=== PATIENT | female | born 1975 | race Caucasian/White ===

== ENCOUNTER → 2016-08-18 | Outpatient (CLI) | payer OTHER ==
--- NOTE | 2016-08-18 13:48 | KCIC ---
PROCEDURE Bilateral digital diagnostic mammogram; left breast sonogram. HISTORY 41-year-old female presents for follow-up evaluation of nodularity within the left breast demonstrated on a mammogram and sonogram dated 08/06/2015 and 08/15/2015. The patient did not return for recommended six-month follow-up. Therefore, the patient is due for bilateral mammography. TECHNIQUE Full field digital craniocaudal and mediolateral oblique views of both breasts are obtained. Computer-aided detection is applied. Sonographic imaging of the left breast targeted to the 12:00 to 6:00 position was also performed. COMPARISON 08/15/2015, 08/06/2015, 06/16/2014 FINDINGS Breast parenchymal composition: Level C - Heterogeneously dense. There is a stable small circumscribed nodular density within the anterior lateral left breast. There are benign calcifications bilaterally. There is no architectural distortion. Sonographic imaging of the left breast demonstrates a round hypoechoic lesion with internal echoes at the 4 o'clock position 6 cm from the nipple measuring 4 mm. No additional lesion is seen. Specifically, the previously demonstrated suspected cysts and fibrocystic changes are no longer seen. IMPRESSION 1. 4 mm benign appearing lesion within the 4 o'clock position of the left breast, likely a complex cyst or benign fibrocystic lesion. 2. No new suspicious mammographic finding. 3. BI-RADS Category 3: Probably benign finding. Short-term followup with a left breast sonogram in 6 months is recommended to confirm stability. Mammography is not 100% sensitive in detecting breast cancer. Therefore, a self breast exam and a clinical breast exam are very important. A negative mammogram does not negate a clinically suspicious finding and should not result in a delay in biopsying a clinically suspicious abnormality. This patient's information has been entered into a reminder system for the patient to be notified with the results of this examination and a target date for her next examination. Electronically signed by: Madison Neely (Aug 18, 2016 13:46:43)
== END | disposition home or self-care (01) ==
LOC: KCIC MAMMO 12:43
PROVIDERS: ATTEND Obstetrics & Gynecology
DX: R92.8 Other abnormal and inconclusive findings on diagnostic imaging of breast (principal); N63 Unspecified lump in breast
CPT/HCPCS: 76641; G0204; 77066

== ENCOUNTER → 2017-02-09 | Outpatient (CLI) | payer OTHER ==
--- NOTE | 2017-02-09 14:34 | KCIC ---
Left breast ultrasound: Reason for examination: 6 month follow-up of the left breast nodule. Comparison is made to previous studies dated 08/18/2016 and 08/15/2015. Ultrasound examination was performed in the area of mammographic concern. In the 4:00 position no discrete cystic or solid nodule is seen. IMPRESSION: Interval resolution of the small fibrocystic lesion at the 4:00 position. Recommend routine mammographic follow-up. BI-RADS Category 1: Negative. "Our facility is accredited by the [employer] Mammography Program." This patient's information has been entered into a reminder system for the patient to be notified with the results of her examination and a target date for the next mammogram. Electronically signed by: Roopa Byrd MD (02/09/2017 2:31 PM) [id number]
== END | disposition home or self-care (01) ==
LOC: KCIC US 14:01
PROVIDERS: ATTEND Obstetrics & Gynecology
DX: N63 Unspecified lump in breast (principal)
CPT/HCPCS: 76641

== ENCOUNTER → 2017-08-24 | Outpatient (CLI) | payer OTHER | END | disposition home or self-care (01) | LOC: KCIC MAMMO 16:40 | DX: Z12.31 Encounter for screening mammogram for malignant neoplasm of breast (principal) | CPT/HCPCS: 77063; 77067 ==

== ENCOUNTER → 2017-12-29 | Outpatient (CLI) | payer OTHER | END | disposition home or self-care (01) | LOC: ECHO 13:36 | DX: I47.1 Supraventricular tachycardia (principal); I27.20 Pulmonary hypertension, unspecified; I36.1 Nonrheumatic tricuspid (valve) insufficiency | CPT/HCPCS: 93306 ==

== ENCOUNTER → 2018-08-10 | Outpatient (CLI) | payer OTHER ==
[2018-08-10 15:46] LABS: BASO % 1 % (0-3); EOS # 0.1 x10^3/uL (0.0-0.7); EOS % 2 % (0-3); HEMATOCRIT 37.2 % (36.0-47.0); HEMOGLOBIN 12.1 g/dL (12.0-15.5); LYMPH # 1.8 x10^3/uL (1.0-4.8); LYMPH % 45 % (24-48); MEAN CORPUSCULAR HEMOGLOBIN 29 pg (25-35); MEAN CORPUSCULAR HGB CONC 33 g/dL (31-37); MEAN CORPUSCULAR VOLUME 90 fL (79-100); MONO # 0.3 x10^3/uL (0.0-1.1); MONO % 8 % (0-9); NEUT # 1.7 x10^3uL (1.8-7.7); NEUT % 43 % (31-73); PLATELET COUNT 242 x10^3/uL (140-400); RED BLOOD COUNT 4.13 x10^6/uL (3.50-5.40)
[2018-08-10 15:56] LABS: BARBITURATES NEG (NEG); BENZODIAZEPINES NEG (NEG); CANNABINOIDS NEG (NEG); COCAINE NEG (NEG); METHADONE NEG (NEG); OPIATES NEG (NEG); PHENCYCLIDINE NEG (NEG)
[2018-08-10 16:02] LABS: AMPHETAMINE/METHAMPHETAMINE NEG (NEG)
[2018-08-10 16:04] LABS: ALBUMIN 3.4 g/dL (3.4-5.0); ALBUMIN/GLOBULIN RATIO 0.9 (1.0-1.7); TOTAL BILIRUBIN 0.5 mg/dL (0.2-1.0); TOTAL PROTEIN 7.4 g/dL (6.4-8.2)
== END | disposition home or self-care (01) ==
LOC: LAB 15:07
PROVIDERS: ATTEND Psychiatry & Neurology Neurology
DX: R56.9 Unspecified convulsions (principal)
CPT/HCPCS: 36415; 80053; 80307; 82607; 84443; 85025

== ENCOUNTER → 2018-08-16 | Outpatient (CLI) | payer OTHER ==
--- NOTE | 2018-08-20 12:11 | EEG ---
DATE OF SERVICE: 08/16/2018 EEG NUMBER: [id number] OBJECTIVE: This is a 43-year-old female patient with history of seizure or seizure-like episodes. EEG was requested to evaluate seizure activity. METHODS: Twenty electrodes were applied according to the international 10-20 electrode placement system. EKG monitoring, hyperventilation, intermittent photic stimulation, monopolar and bipolar montages were routinely utilized. The record was obtained on a digital system with video monitoring. FINDINGS: 1. Background: The patient was recorded in the awake and drowsy states. No actual sleep state was recorded. The overall background amplitude was 5-15 microvolts. A posterior dominant rhythm of 8-10 Hz was observed. 2. Abnormalities: No specific epileptiform discharge or electrographic seizure was seen. No focal or diffuse slowing. 3. Activation: Hyperventilation was performed with good efforts and normal response. Intermittent photic stimulation was performed with photic driving. No specific epileptiform discharge or electrographic seizure induced by hyperventilation or intermittent photic stimulation. IMPRESSION: This EEG is a normal study for the awake and drowsy states. No sleep state was recorded. No focal, lateralizing, specific epileptiform discharge or electrographic seizure is seen. CHETNA KAYE MD DR: CARLEY/krystal JOB#: [id number] / [id number] NURY
== END | disposition home or self-care (01) ==
LOC: MERGE 08:12 → NM 08:12
PROVIDERS: ATTEND Internal Medicine Cardiovascular Disease
DX: R56.9 Unspecified convulsions (principal)
CPT/HCPCS: 95816

== ENCOUNTER → 2018-08-16 | Outpatient (CLI) | payer OTHER ==
--- NOTE | 2018-08-26 13:36 | RAD ---
MR#: [id number] Date of Study: 08/16/2018 Ordering Physician: ADELINE ESTRADA Referring Physician: MEAGHAN REYNOLDS Tech: APPROVED REPORT Test Type: Exercise Stress Nurse/Tech: Haylie Kincaid R.N. Cardiac History: See Electronic Medical Record Medications: See Electronic Medical Record Medical History: See Electronic Medical Record Resting ECG: SR POST EXERCISE Reason for Termination: Reached target heart rate Target HR: Yes Max HR: 152 bpm 102% of Maximum Predicted HR: 148 bpm Exercise duration: 10 min:sec, Stage Exercise capacity: 10METs Max Blood Pressure: 149/76mmHg Blood Pressure response to exercise: Normal blood pressure response during stress. INTERPRETATION Stress EKG Conclusion: Significant artifact noted on EKG tracings but within these limitations, no ev idence of ischemia. Other Information Quality:Poor Conclusion 1. Baseilne EKG without acute abnormalities. 2. Stress EKG with significant artifact, but within these limitations adequate exercise capacity at 1 0 Mets achieved. No significant ischemic findings. 3. Overall, low risk study Signed by : Sergey Reynoldsally Approved : 08/26/2018 13:36:19
== END | disposition home or self-care (01) ==
LOC: NM 09:21
PROVIDERS: ATTEND Internal Medicine Cardiovascular Disease
DX: I47.1 Supraventricular tachycardia (principal)
CPT/HCPCS: 93017

== ENCOUNTER → 2018-08-27 | Outpatient (CLI) | payer OTHER ==
--- NOTE | 2018-08-27 16:13 | KCIC ---
Bilateral digital screening mammograms with 3-D tomosynthesis: Reason for examination: Routine screening. Comparison is made to previous studies dated 08/24/2017 and 08/18/2016. Bilateral mammograms in CC and oblique projections were obtained with 2-D imaging and 3-D tomosynthesis imaging on a Siemens Inspiration unit and reviewed on the workstation. Interpretation was made with the benefit of CAD. The skin and nipples show no abnormalities. No abnormal axillary lymph nodes are seen. The breast parenchyma is heterogeneously dense. (Breast density: Category C.) There appears to be a new area of nodular architectural distortion seen centrally in the left breast on cc view. Further evaluation with coned compression views and ultrasound is recommended. There are no other dominant masses, suspicious calcifications or architectural distortion. Impression: Nodular architectural distortion seen centrally in the left breast on cc view. Recommend further evaluation with coned compression views in CC and lateral projections and left breast ultrasound. Your patient's mammogram demonstrates that she has dense breast tissue (breast density category C or D), which could hide abnormalities, and if she has other risk factors for breast cancer that have been identified, she might benefit from supplemental screening tests that may be suggested by you as her ordering physician. Dense breast tissue, in and of itself, is a relatively common condition. Therefore, this information is not provided to cause undue concern, but rather to raise your awareness and to promote discussion with your patient regarding the presence of other risk factors, in addition to dense breast tissue. Your patient's mammography results will be sent to her. BI-RAD Category 0: Incomplete. Needs additional imaging evaluation. "Our facility is accredited by the [employer] Mammography Program." This patient's information has been entered into a reminder system for the patient to be notified with the results of her examination and a target date for the next mammogram. Electronically signed by: Roopa Byrd MD (08/27/2018 4:10 PM) [id number]
== END | disposition home or self-care (01) ==
LOC: KCIC MAMMO 14:47
PROVIDERS: ATTEND Obstetrics & Gynecology
DX: Z12.31 Encounter for screening mammogram for malignant neoplasm of breast (principal)
CPT/HCPCS: 77063; 77067

== ENCOUNTER → 2019-03-22 | Outpatient (CLI) | payer OTHER ==
--- NOTE | 2019-03-22 16:08 | KCIC ---
Left breast diagnostic digital mammograms with 3-D tomosynthesis: Reason for examination: Follow-up nodular density. Comparison is made to previous studies dated 08/27/2018 and 08/24/2017. Left breast mammograms in CC and oblique projections were obtained with 2-D imaging and 3-D tomosynthesis imaging on a Siemens Inspiration unit and reviewed on the workstation. Interpretation was made with the benefit of CAD. The skin and nipple show no abnormalities. No abnormal axillary lymph nodes are seen. The breast parenchyma is heterogeneously dense. (Breast density: Category C.) There continues to be some subtle nodularity posterior medially in the left breast on cc view only. No definite correlate is seen on oblique view. This does not show significant interval change. There are no new dominant masses, suspicious calcifications or architectural distortion. Impression: Subtle nodularity persists medially in the left breast on cc view with no definite correlate on oblique view. Ultrasound to follow. Your patient's mammogram demonstrates that she has dense breast tissue (breast density category C or D), which could hide abnormalities, and if she has other risk factors for breast cancer that have been identified, she might benefit from supplemental screening tests that may be suggested by you as her ordering physician. Dense breast tissue, in and of itself, is a relatively common condition. Therefore, this information is not provided to cause undue concern, but rather to raise your awareness and to promote discussion with your patient regarding the presence of other risk factors, in addition to dense breast tissue. Your patient's mammography results will be sent to her. BI-RAD Category 0: Incomplete. Needs additional imaging evaluation. Left breast ultrasound: Ultrasound examination was performed in the area of mammographic concern" the axilla. At the 7:30 position 3 cm from the nipple, there continue to be 2 small hypoechoic benign-appearing fibrocystic lesions measuring up to 3.9 mm in size which is unchanged. There also continues to be a 3.9 mm lesion in the 8:00 position 3 cm from the nipple which is stable. In the 11:30 position 6 cm from the nipple, there is a 7.8 mm cyst. There is also a septated 1.3 cm lesion consistent with probable fibroadenoma. In the 6:00 position 7 cm from the nipple there is a small hypoechoic fibrocystic type lesion measuring 5.6 mm in size. There is a 1.6 cm lymph node in the left axilla with eccentric cortical thickening. This is probably reactive. IMPRESSION: Several small benign-appearing cystic and fibrocystic lesions which are subcentimeter in size. 1.3 cm hypoechoic septated lesion consistent with a fibroadenoma at the 11:30 position 6 cm from the nipple. 1.6 cm lymph node in left axilla with some concentric cortical thickening. This is probably reactive. Recommend follow-up ultrasound in 3 months. BI-RADS Category 3: Probably Benign. "Our facility is accredited by the [employer] Mammography Program." This patient's information has been entered into a reminder system for the patient to be notified with the results of her examination and a target date for the next mammogram. Electronically signed by: Roopa Byrd MD (03/22/2019 4:06 PM) [id number]
== END | disposition home or self-care (01) ==
LOC: KCIC MAMMO 08:40
PROVIDERS: ATTEND Obstetrics & Gynecology
DX: N60.02 Solitary cyst of left breast (principal); N64.89 Other specified disorders of breast
CPT/HCPCS: 76641; 77065; G0279; 77061

== ENCOUNTER → 2019-06-20 | Outpatient (CLI) | payer OTHER ==
--- NOTE | 2019-06-20 14:08 | KCIC ---
BREAST LEFT Clinical Indication: 3 month follow-up. Comparison: Left breast ultrasound 03/22/2019. TECHNIQUE: Real-time ultrasound imaging of the left breast is performed. Findings: Fibrocystic change measures 3 mm at the 7:30 position 3 cm from the nipple, unchanged. Fibrocystic lesion at the 8:00 position 3 cm from the nipple is no longer identified. At the 11:00 position 6 cm from the nipple probable fibroadenoma measures 12 x 4 mm, stable. At the 6:00 position 7 cm from the nipple fibrocystic change is slightly smaller measuring 4 x 2 mm. The left axillary lymph node with cortical thickening is stable. Cortical thickening measures up to 3.5 mm, unchanged. Fatty hilum is preserved. IMPRESSION: 1. Fibrocystic changes are stable or improved from prior study. Probable fibroadenoma at the 11:00 position 6 cm from the nipple is stable. 2. Axillary lymph node with cortical thickening is unchanged. Recommend ultrasound follow-up in 6 months. 3. BI-RADS Category 3, probably benign. Electronically signed by: Parker Parisi MD (06/20/2019 2:05 PM) [email or web address]
== END | disposition home or self-care (01) ==
LOC: KCIC US 13:12
PROVIDERS: ATTEND Surgery
DX: N64.89 Other specified disorders of breast (principal)
CPT/HCPCS: 76641

== ENCOUNTER → 2020-01-12 | Outpatient (CLI) | payer OTHER ==
--- NOTE | 2020-01-12 15:18 | KCIC ---
Left breast ultrasound HISTORY: Six-month follow-up of probably benign left breast lesions. COMPARISON: Left breast ultrasound June 20, 2019, March 22, 2019 and priors. FINDINGS: No axillary adenopathy evident, the largest axillary lymph node demonstrates cortical thickness at upper limits of normal measuring 3 mm. There are scattered fibrocystic lesions of the left breast which are stable the largest of which is at the 10:00 position 6 cm from the nipple measuring 1.3 x 0.5 cm. No new or suspicious lesion. IMPRESSION: Stable fibrocystic changes of the left breast back to February 2019. Imaging features are probably benign. Attention on follow-up left breast ultrasound in 6 months is advised to document continued stability. BI-RADS Category 3: Probably benign Electronically signed by: Mick Powell MD (01/12/2020 3:15 PM) [id number]
== END | disposition home or self-care (01) ==
LOC: KCIC US 14:26
PROVIDERS: ATTEND Surgery
DX: N64.89 Other specified disorders of breast (principal); R92.8 Other abnormal and inconclusive findings on diagnostic imaging of breast
CPT/HCPCS: 76641

== ENCOUNTER → 2021-06-20 | Outpatient (CLI) | payer OTHER ==
--- NOTE | 2021-06-20 14:29 | KCIC ---
EXAM: Chest, 2 views. HISTORY: Wheezing. COMPARISON: None. FINDINGS: 2 views of the chest are obtained. There is no infiltrate, pleural effusion or pneumothorax . The heart is normal in size. IMPRESSION: No acute pulmonary finding. Electronically signed by: Madison Neely MD (06/20/2021 2:27 PM) [id number]
== END ==
LOC: KCIC 14:05
PROVIDERS: ATTEND Family Medicine
DX: R06.2 Wheezing (principal)
CPT/HCPCS: 71046

== ENCOUNTER → 2021-07-04 | Outpatient (CLI) | payer OTHER ==
--- NOTE | 2021-07-04 17:29 | KCIC ---
Sonography of the right wrist Clinical indications: Mass of the right wrist per patient. FINDINGS: Sonography of the posterior distal right forearm and posterior right wrist area in the area of clinical concern as indicated by the patient was performed. No focal sonographic abnormality is e vident. IMPRESSION: No focal sonographic abnormality is seen. Therefore, with regard to any palpable lump, fo llow-up should be clinical. Electronically signed by: Geoffrey Roy MD (07/04/2021 5:27 PM) [id number]
== END ==
LOC: KCIC US 13:10
PROVIDERS: ATTEND Family Medicine
DX: M79.89 Other specified soft tissue disorders (principal)
CPT/HCPCS: 76881

== ENCOUNTER → 2021-07-17 | Outpatient (CLI) | payer OTHER ==
--- NOTE | 2021-07-17 13:07 | KCIC ---
Bilateral diagnostic digital mammograms with 3-D tomosynthesis: Reason for examination: Follow-up for nodules. Comparison is made to previous study dated studies dated back to 08/18/2016. Bilateral mammograms in CC and oblique projections were obtained with 2-D imaging and 3-D tomosynthes is imaging on a Siemens Inspiration unit and reviewed on the workstation. Interpretation was made wit h the benefit of CAD. The skin and nipples show no abnormalities. No abnormal axillary lymph nodes are seen. The breast par enchyma is extremely dense. (Breast density: Category D.) There continue to be small circumscribed no dular densities in the left breast. Scattered benign appearing calcifications are present. Impression: Small circumscribed nodules in the left breast. Ultrasound to follow. Your patient's mammogram demonstrates that she has dense breast tissue (breast density category C or D), which could hide abnormalities, and if she has other risk factors for breast cancer that have bee n identified, she might benefit from supplemental screening tests that may be suggested by you as her ordering physician. Dense breast tissue, in and of itself, is a relatively common condition. Therefo re, this information is not provided to cause undue concern, but rather to raise your awareness and t o promote discussion with your patient regarding the presence of other risk factors, in addition to d ense breast tissue. Your patient's mammography results will be sent to her. BI-RAD Category 0: Incomplete. Needs additional imaging evaluation. Left breast ultrasound: Comparison is made to previous ultrasound examinations dated back to 09/20/2018. Ultrasound examination of the left breast and axilla was performed. At the 3:00 position 8 cm from the nipple, there is a 5.4 mm hypoechoic fibrocystic type nodule. At t he 6:00 position 5.5 cm from the nipple, there is a 5.1 mm hypoechoic fibrocystic lesion which appear s to be stable. At the 7:30 position 3 cm from the nipple, there appears be a 6 mm hypoechoic nodule which may represent a complicated cyst. At the 9:00 position 5 cm from the nipple, there is a 4.9 mm hypoechoic fibrocystic lesion. At the 10:00 position 6 cm from the nipple, there is a 1.3 cm fibrocys tic lesion in parallel orientation. At the 11:30 position 6 cm from the nipple, there is a 6.2 mm cys tic-appearing lesion. No grossly suspicious nodules are seen. No abnormal appearing lymph nodes are s een axilla. IMPRESSION: Continued presence of multiple small benign-appearing cystic and fibrocystic type nodules which appea r to be relatively stable. Recommend however reevaluation with left breast ultrasound in 6 months. BI-RADS Category 3: Probably Benign. "Our facility is accredited by the [employer] Mammography Program." This patient's information has been entered into a reminder system for the patient to be notified wit h the results of her examination and a target date for the next mammogram. Electronically signed by: Roopa Byrd MD (07/17/2021 1:04 PM) [email or web address]
== END ==
LOC: KCIC MAMMO 08:43
PROVIDERS: ATTEND Obstetrics & Gynecology
DX: N63.20 Unspecified lump in the left breast, unspecified quadrant (principal); R92.8 Other abnormal and inconclusive findings on diagnostic imaging of breast
CPT/HCPCS: 76641; 77066; G0279; 77062